=== PATIENT | male | born 1980 | race Caucasian/White ===

== ENCOUNTER → 2016-12-01 | Outpatient (CLI) | payer OTHER ==
--- NOTE | 2016-12-01 18:54 | PN ---
A 36-year-old gentleman who has been followed in the sleep center for treatment of obstructive sleep apnea-hypopnea syndrome. Recently he had a diagnostic sleep study and CPAP titration and discussed results of sleep study with the patient in detail. He received his CPAP unit and he brought his CPAP unit with him to the check-up. I checked his CPAP unit. CPAP pressure is 9 cm of water. Usage is 22 out of 30 nights and 15 out of 30 nights for more than 4 hours. Leak is 14 L/min, which is acceptable. Apnea-hypopnea index is only 0.9, which is perfect. No significant problem with the mask. [place] Sleepiness Scale today is still in the high range at 22. MEDICATIONS: 1. Clonazepam. 2. Sertraline. 3. Metoprolol. 4. Atorvastatin. 5. Seroquel. PHYSICAL EXAMINATION: GENERAL: A pleasant patient without any distress. VITAL SIGNS: BP 102/63, HR 80, RR 16. Weight 237. Temp 98.0, oxygen saturation at room air 98%. HEENT: PERRLA, EOMI. Evaluation of oropharynx showed tongue protrudes midline, extremely low position of soft palate. NECK: Supple. No JVD. Thyroid is not palpable. LUNGS: Clear to percussion and to auscultation. Good air exchange. No wheezing or rhonchi. HEART: S1, S2 regular. Sistolic murmur on aorta, gallops, or rubs. ABDOMEN: Slightly obese, soft and nontender. Bowel sounds are present. No organomegaly appreciated. EXTREMITIES: No clubbing or cyanosis. 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 Cranial nerves 2 to 7 intact. There is no fasciculation or atrophy noted. No focal deficits observed. IMPRESSION: 1. Mild obstructive sleep apnea-hypopnea syndrome on full control with continuous positive airway pressure at 9 cm of water. Patient using machine slightly below the range of today's requirements. 2. Obesity. Body mass index is in the range of 36. 3. History of cardiac arrhythmia, status post pacemaker and defibrillator installation. 4. History of possible cardiomyopathy. 5. Hypertension. 6. Hyperlipidemia. 7. Anxiety. 8. Depression. 9. History of sinus problems. PLAN: 1. Continue treatment with CPAP every night for the whole night. 2. Watching and losing weight. 3. Sleep hygiene with regular time in bed for at least 8 hours. 4. No driving if feeling any sleepiness. Thank you very much for allowing me to participate in the management of your patient. Sincerely, Salvatore Pace MD, PhD, FAASM. Diplomat of [place] [employer], Sleep Medicine Board by [place] [employer] [place] [employer] [facility]
== END | disposition home or self-care (01) ==
LOC: SLEEP 14:45
PROVIDERS: ATTEND Internal Medicine
DX: G47.33 Obstructive sleep apnea (adult) (pediatric) (principal); E66.9 Obesity, unspecified; Z68.36 Body mass index [BMI] 36.0-36.9, adult; I49.9 Cardiac arrhythmia, unspecified; Z95.0 Presence of cardiac pacemaker; Z95.810 Presence of automatic (implantable) cardiac defibrillator; I10 Essential (primary) hypertension; E78.5 Hyperlipidemia, unspecified; F41.9 Anxiety disorder, unspecified; Z79.899 Other long term (current) drug therapy

== ENCOUNTER 2017-08-17 21:30 | Emergency (ER) | payer OTHER ==
[2017-08-17 21:39] VITALS: TEMP 98
[2017-08-17] MEDS ORDERED: SODIUM CHLORIDE 0.9% 1,000 ML IV STA (21:48)
[2017-08-17] MEDS ORDERED: RX INFO: IV CONTRAST WAS GIVEN 1 EACH MISC MISCELLANE PRN (21:48)
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
[2017-08-17 22:24] LABS: ALT 31 U/L (21-72); AST 38 U/L (17-59); Albumin 4.7 g/dL (3.5-5.0); Alcohol <10 mg/dL; Alkaline Phosphatase 82 U/L (38-126); Anion Gap 14 mmol/L; Blood Urea Nitrogen 21 mg/dL (9-20); Calcium 9.8 mg/dL (8.4-10.2); Carbon Dioxide 25 mmol/L (22-30); Chloride 103 mmol/L (98-107); D-Dimer 0.51 mg/L FEU (<0.60); Glucose 91 mg/dL (74-99); Magnesium 2.2 mg/dL (1.6-2.3); Phosphorus 3.9 mg/dL (2.5-4.5); Potassium 4.2 mmol/L (3.5-5.1); Sodium 142 mmol/L (137-145); Total Bilirubin 0.4 mg/dL (0.2-1.3); Total Protein 7.9 g/dL (6.3-8.2)
[2017-08-17 22:26] LABS: Basophils % (A) 0 %; Eosinophils # (A) 0.2 k/uL (0-0.7); Eosinophils % (A) 2 %; HCT 45.5 % (39.0-53.0); HGB 15.2 gm/dL (13.0-17.5); Lymphocytes # (A) 2.1 k/uL (1.0-4.8); Lymphocytes % (A) 23 %; MCH 29.5 pg (25.0-35.0); MCHC 33.5 g/dL (31.0-37.0); Mean Platelet Volume 7.3; Monocytes # (A) 0.5 k/uL (0-1.0); Monocytes % (A) 5 %; Neutrophils # (A) 6.3 k/uL (1.3-7.7); Neutrophils % (A) 69 %; Platelet Count 239 k/uL (150-450); RBC 5.17 m/uL (4.30-5.90); RDW 12.9 % (11.5-15.5); WBC 9.2 k/uL (3.8-10.6)
[2017-08-17 22:28] LABS: Partial Thromboplastin Time 23.9 sec (22.0-30.0); Prothrombin Time 9.9 sec (9.0-12.0)
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
[2017-08-17 22:52] LABS: Troponin I 0.033 ng/mL (0.000-0.034)
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
[2017-08-17 23:02] LABS: Creatine Kinase MB 5.1 ng/mL (0.0-2.4)
[2017-08-17] MEDS ORDERED: NITROGLYCERIN SL TABS 0.4 MG TAB SUBLINGUAL PRN (23:06)
[2017-08-17 23:35] LABS: Appearance,Urine Clear (Clear); Bilirubin,Urine Negative (Negative); Blood,Urine Negative (Negative); Color,Urine Yellow; Glucose,Urine (UA) Negative (Negative); Ketones,Urine Negative (Negative); Leukocyte Esterase,Urine Negative (Negative); Nitrite,Urine Negative (Negative); Protein,Urine Trace (Negative); Specific Gravity,Urine 1.037 (1.001-1.035); Urobilinogen,Urine <2.0 mg/dL (<2.0)
[2017-08-17 23:46] LABS: Amphetamine Screen,Urine Detected (NotDetected); Benzodiazepines Screen,Urine Not Detected (NotDetected); Cocaine Screen,Urine Not Detected (NotDetected); Methadone Screen, Urine Not Detected (NotDetected); Opiate Screen,Urine Not Detected (NotDetected); Phencyclidine Screen,Urine Not Detected (NotDetected); Tricyclic Antidepressant,Urine Not Detected (NotDetected); Urn Cannabinoid Scrn Detected (NotDetected)
[2017-08-17 23:47] LABS: Barbiturate Screen,Urine Not Detected (NotDetected); Oxycodone Screen, Urine Detected (NotDetected)
[2017-08-17 23:51] VITALS: BP 159/75; PULSE 80; RESP 20
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
[2017-08-18] MEDS ORDERED: ASPIRIN 325 MG TAB PO SCH (09:00)
== END 2017-08-18 00:01 | disposition left against medical advice (07) ==
LOC: EC 21:30 → UNDOADMIN 23:06 → 6SEL 23:06 → EC 08-18 00:01
DX: Z04.1 Encounter for examination and observation following transport accident (principal); R55 Syncope and collapse; I42.1 Obstructive hypertrophic cardiomyopathy; R79.89 Other specified abnormal findings of blood chemistry; I25.10 Atherosclerotic heart disease of native coronary artery without angina pectoris; E78.5 Hyperlipidemia, unspecified; I10 Essential (primary) hypertension; F32.9 Major depressive disorder, single episode, unspecified; F41.9 Anxiety disorder, unspecified; F17.200 Nicotine dependence, unspecified, uncomplicated; Z53.29 Procedure and treatment not carried out because of patient's decision for other reasons; Z79.82 Long term (current) use of aspirin; Z79.899 Other long term (current) drug therapy
CPT/HCPCS: 99285; 96360; 36415; 93005; 85379; 83880; 80053; 82550; 82553; 83605; 83735; 84100; 84484; 85025; 85610; 85730; 81003; 80306; 80320; 87086; 72125; 70450; 71275; 74177; Q9967

== ENCOUNTER → 2018-04-17 | Outpatient (CLI) | payer OTHER ==
[2018-04-17 11:22] LABS: Anion Gap 8 mmol/L; Blood Urea Nitrogen 15 mg/dL (9-20); Calcium 9.4 mg/dL (8.4-10.2); Carbon Dioxide 24 mmol/L (22-30); Chloride 107 mmol/L (98-107); Glucose 78 mg/dL (74-99); Potassium 4.3 mmol/L (3.5-5.1); Sodium 139 mmol/L (137-145)
--- NOTE | 2018-04-17 12:24 | CT ---
EXAMINATION TYPE: CT chest w con DATE OF EXAM: 04/17/2018 COMPARISON: 08/17/2017 HISTORY: 37-year-old male Wheezing and dyspnea. Pt has history of open heart surgery from cardiomyopa thy. TECHNIQUE: Contiguous axial scanning of the chest after the administration of 100 mL of Isovue M300. Coronal/sagittal reconstructions performed. CT DLP: 737mGycm. Automatic exposure control utilized for a dose reduction. FINDINGS: Median sternotomy wires are present with post-CABG the mediastinum. Left anterior chest wall ICD gene rator with right atrial and right ventricular leads. Heart upper limits of normal in size without pericardial effusion. Aorta normal caliber with conventional vessel branching anatomy. No thoracic lymphadenopathy by CT size criteria. Mild diffuse bronchial wall thickening is noted without consolidation or pleural effusion. Visualized upper abdomen shows no gross abnormality Bones: No osseous destructive process. IMPRESSION: Mild diffuse bronchial wall thickening could reflect bronchitis or asthma. Otherwise, no acute pulmon chance process seen.
== END | disposition home or self-care (01) ==
LOC: CPPFTMAIN 10:22
PROVIDERS: ATTEND Family Medicine
DX: J44.9 Chronic obstructive pulmonary disease, unspecified (principal); J98.09 Other diseases of bronchus, not elsewhere classified; R06.00 Dyspnea, unspecified
CPT/HCPCS: 94726; 94729; 94060; 80048; 71260; Q9967

== ENCOUNTER 2018-06-18 19:21 | Inpatient (IN) | payer MEDICAID, OTHER ==
--- NOTE | 2018-06-18 19:39 | ED ---
Psych HPI <Cal Hall - Last Filed: 06/19/18 13:02> - General Source: patient, police, RN notes reviewed, old records reviewed Mode of arrival: ambulatory - History of Present Illness MD Complaint: suicidal ideation, feels depressed -: days(s) Associated Psychiatric Symptoms: depression History of same: Yes Quality: constant, getting worse Improves With: medication (off medication) Context: recent alcohol abuse Associated Symptoms: denies other symptoms Treatments Prior to Arrival: none If Self Harm: has plan <Eliot Orr - Last Filed: 06/19/18 16:51> - General Chief Complaint: Psychiatric Symptoms Stated Complaint: Mental health Time Seen by Provider: 06/18/18 19:37 - History of Present Illness Initial Comments: This is a 37 male to the ED co suicidal thoughts and depression, states this is how he normally feels, he is brought in by EMS and PD and petitioned for psychiatric evaluation (Eliot Orr) - Related Data Home Medications Medication Instructions Recorded Confirmed Atorvastatin [Lipitor] 40 mg PO HS 05/19/16 06/18/18 Sertraline [Zoloft] 200 mg PO DAILY 05/19/16 06/18/18 Aspirin EC [Ecotrin Low Dose] 81 mg PO DAILY 06/18/18 06/18/18 Metoprolol Succinate [Toprol XL] 100 mg PO BID 06/18/18 06/18/18 Allergies Allergy/AdvReac Type Severity Reaction Status Date / Time No Known Allergies Allergy Verified 06/18/18 20:09 Review of Systems ROS Other: All systems not noted in ROS Statement are negative. <Cal Hall - Last Filed: 06/19/18 13:02> ROS Other: All systems not noted in ROS Statement are negative. <Eliot Orr - Last Filed: 06/19/18 16:51> ROS Statement: Those systems with pertinent positive or pertinent negative responses have been documented in the HPI. Past Medical History Past Medical History: Coronary Artery Disease (CAD), Hyperlipidemia, Hypertension Additional Past Medical History / Comment(s): Cardiomyopathy, left ventricular hypertrophy, heart murmur History of Any Multi-Drug Resistant Organisms: None Reported Past Surgical History: Adenoidectomy, Coronary Bypass/CABG, Tonsillectomy Additional Past Surgical History / Comment(s): bone spurs in feet removed Past Anesthesia/Blood Transfusion Reactions: No Reported Reaction Past Psychological History: Anxiety, Depression Smoking Status: Current every day smoker Past Alcohol Use History: Occasional Past Drug Use History: Marijuana - Past Family History Father Family Medical History: Congestive Heart Failure (CHF), Diabetes Mellitus Additional Family Medical History / Comment(s): Father is 65 yrs old. He has a pacemaker. Mother Family Medical History: COPD, Diabetes Mellitus Additional Family Medical History / Comment(s): Mother is 61 yrs old. She is an exsmoker. <Eliot Orr - Last Filed: 06/19/18 16:51> General Exam Limitations: no limitations General appearance: alert, in no apparent distress Head exam: Present: atraumatic, normocephalic, normal inspection Eye exam: Present: normal appearance, PERRL, EOMI. Absent: scleral icterus, conjunctival injection, periorbital swelling ENT exam: Present: normal exam, mucous membranes moist Neck exam: Present: normal inspection. Absent: tenderness, meningismus, lymphadenopathy Respiratory exam: Present: normal lung sounds bilaterally. Absent: respiratory distress, wheezes, rales, rhonchi, stridor Cardiovascular Exam: Present: regular rate, normal rhythm, normal heart sounds. Absent: systolic murmur, diastolic murmur, rubs, gallop, clicks GI/Abdominal exam: Present: soft, normal bowel sounds. Absent: distended, tenderness, guarding, rebound, rigid Extremities exam: Present: normal inspection, full ROM, normal capillary refill. Absent: tenderness, pedal edema, joint swelling, calf tenderness Back exam: Present: normal inspection Neurological exam: Present: alert, oriented X3, CN II-XII intact Psychiatric exam: Present: normal affect, normal mood Skin exam: Present: warm, dry, intact, normal color. Absent: rash <Eliot Orr - Last Filed: 06/19/18 16:51> Course <Cal Hall - Last Filed: 06/19/18 13:02> <Eliot Orr - Last Filed: 06/19/18 16:51> Vital Signs 06/18/18 06/19/18 06/19/18 19:28 06:03 12:56 Temperature 98.3 F 97.3 F L Pulse Rate 125 H 79 116 H Respiratory 20 16 18 Rate Blood Pressure 155/104 143/94 126/96 O2 Sat by Pulse 98 100 98 Oximetry - Reevaluation(s) Reevaluation #1: 06/18/18 19:39 patient is medically clear for psychiatric evaluation (Eliot Orr) Medical Decision Making - Lab Data Result diagrams: 06/19/18 03:57 06/19/18 03:57 <Cal Hall - Last Filed: 06/19/18 13:02> - Lab Data Result diagrams: 06/19/18 03:57 06/19/18 03:57 <Eliot Orr - Last Filed: 06/19/18 16:51> - Medical Decision Making The patient was resting comfortably throughout the morning and early afternoon. Patient was reevaluated by psychiatric service I did fill out a physician certification patient will be admitted for inpatient treatment of depression and suicidal ideation. (Cal Hall) - Lab Data Lab Results 06/19/18 06/19/18 Range/Units 03:57 03:57 WBC 11.2 H (3.8-10.6) k/uL RBC 4.87 (4.30-5.90) m/uL Hgb 14.8 (13.0-17.5) gm/dL Hct 43.8 (39.0-53.0) % MCV 90.0 (80.0-100.0) fL MCH 30.4 (25.0-35.0) pg MCHC 33.8 (31.0-37.0) g/dL RDW 12.1 (11.5-15.5) % Plt Count 237 (150-450) k/uL Neutrophils % 58 % Lymphocytes % 32 % Monocytes % 6 % Eosinophils % 2 % Basophils % 0 % Neutrophils # 6.5 (1.3-7.7) k/uL Lymphocytes # 3.6 (1.0-4.8) k/uL Monocytes # 0.7 (0-1.0) k/uL Eosinophils # 0.2 (0-0.7) k/uL Basophils # 0.0 (0-0.2) k/uL Sodium 143 (137-145) mmol/L Potassium 4.1 (3.5-5.1) mmol/L Chloride 109 H (98-107) mmol/L Carbon Dioxide 26 (22-30) mmol/L Anion Gap 8 mmol/L BUN 13 (9-20) mg/dL Creatinine 1.11 (0.66-1.25) mg/dL Est GFR (CKD-EPI)AfAm >90 (>60 ml/min/1.73 sqM) Est GFR (CKD-EPI)NonAf 84 (>60 ml/min/1.73 sqM) Glucose 104 H (74-99) mg/dL Calcium 9.7 (8.4-10.2) mg/dL Total Bilirubin 0.3 (0.2-1.3) mg/dL AST 30 (17-59) U/L ALT 27 (21-72) U/L Alkaline Phosphatase 54 (38-126) U/L Total Protein 6.9 (6.3-8.2) g/dL Albumin 4.1 (3.5-5.0) g/dL Acetaminophen <10.0 ug/mL Serum Alcohol <10 mg/dL Disposition <Cal Hall - Last Filed: 06/19/18 13:02> <Eliot Orr - Last Filed: 06/19/18 16:51> Clinical Impression: Depression, Suicidal ideation Disposition: TRANSFER TO PSYCH HOSP/UNIT Condition: Stable
[2018-06-18] MEDS: LORazepam 2 MG/ML INJ IM STA ×2 (19:52→21:36)
[2018-06-19 04:11] LABS: Basophils % (A) 0 %; Eosinophils # (A) 0.2 k/uL (0-0.7); Eosinophils % (A) 2 %; HCT 43.8 % (39.0-53.0); HGB 14.8 gm/dL (13.0-17.5); Lymphocytes # (A) 3.6 k/uL (1.0-4.8); Lymphocytes % (A) 32 %; MCH 30.4 pg (25.0-35.0); MCHC 33.8 g/dL (31.0-37.0); Mean Platelet Volume 6.9; Monocytes # (A) 0.7 k/uL (0-1.0); Monocytes % (A) 6 %; Neutrophils # (A) 6.5 k/uL (1.3-7.7); Neutrophils % (A) 58 %; Platelet Count 237 k/uL (150-450); RBC 4.87 m/uL (4.30-5.90); RDW 12.1 % (11.5-15.5); WBC 11.2 k/uL (3.8-10.6)
[2018-06-19 04:23] LABS: ALT 27 U/L (21-72); AST 30 U/L (17-59); Acetaminophen <10.0 ug/mL; Albumin 4.1 g/dL (3.5-5.0); Alcohol <10 mg/dL; Alkaline Phosphatase 54 U/L (38-126); Anion Gap 8 mmol/L; Blood Urea Nitrogen 13 mg/dL (9-20); Calcium 9.7 mg/dL (8.4-10.2); Carbon Dioxide 26 mmol/L (22-30); Chloride 109 mmol/L (98-107); Glucose 104 mg/dL (74-99); Potassium 4.1 mmol/L (3.5-5.1); Sodium 143 mmol/L (137-145); Total Bilirubin 0.3 mg/dL (0.2-1.3); Total Protein 6.9 g/dL (6.3-8.2)
[2018-06-19] MEDS ORDERED: LORazepam 2 MG/ML INJ IM STA (06:12)
[2018-06-19] MEDS: ASPIRIN 81 MG PO SCH (12:57)
[2018-06-19] MEDS: SERTRALINE 100 MG TAB PO SCH (12:58)
[2018-06-19] MEDS: METOPROLOL SUCCINATE (ER) 100 MG TAB.ER.24H PO SCH ×2 (12:58→20:33)
[2018-06-19] MEDS ORDERED: NICOTINE 21MG/24HR PATCH TRANSDERM STA (13:01)
[2018-06-19] MEDS ORDERED: MAGNESIUM HYDROXIDE 2,400 MG/10 ML CUP PO PRN (13:57)
[2018-06-19] MEDS ORDERED: ACETAMINOPHEN TAB 325 MG TAB PO PRN (13:57)
[2018-06-19] MEDS ORDERED: ZIPRASIDONE 20 MG VIAL IM PRN (13:57)
[2018-06-19] MEDS ORDERED: MAG HYDROX/AL HYDROX/SIMETH 30 ML CUP PO PRN (13:57)
[2018-06-19] MEDS: LORazepam 1 MG TAB PO PRN ×2 (14:41→23:07)
[2018-06-19 14:50] VITALS: BMI 35.6
--- NOTE | 2018-06-19 15:14 | P.CONS ---
History of Present Illness - Reason for Consult Consult date: 06/19/18 medical managment Requesting physician: Joaquim Kan - Chief Complaint Suicidal ideation - History of Present Illness This is a 37-year-old male patient of Dr. Burnett who presents to the emergency room with complaints of depression and suicidal ideation. Patient states he has been having frequent panic attacks over the past month. Patient does have a significant medical history of congenital heart requiring open heart surgery in July 2016 at [facility]. Additional medical history includes cardiac defibrillator for cardiomyopathy, asthma, coronary artery disease, hypertension , smoker, anxiety and depression. Patient does state he has not been consistently taking all of his meds including his cardiac meds due to comp occasions with his insurance. Patient states he has not followed up with compressor engineer in over a year. At this time patient is quite upset and angry that he has to be in the hospital. Patient is hyperverbal and tearful at times. At this time patient denies chest pain or shortness breath. Patient denies any nausea vomiting or diarrhea. Patient denies any urinary burning or frequency Review of Systems Please refer to HPI otherwise remarkable Past Medical History Past Medical History: Coronary Artery Disease (CAD), Hyperlipidemia, Hypertension Additional Past Medical History / Comment(s): Cardiomyopathy, left ventricular hypertrophy, heart murmur History of Any Multi-Drug Resistant Organisms: None Reported Past Surgical History: Adenoidectomy, Coronary Bypass/CABG, Tonsillectomy Additional Past Surgical History / Comment(s): bone spurs in feet removed Past Anesthesia/Blood Transfusion Reactions: No Reported Reaction Smoking Status: Current every day smoker - Past Family History Father Family Medical History: Congestive Heart Failure (CHF), Diabetes Mellitus Additional Family Medical History / Comment(s): Father is 65 yrs old. He has a pacemaker. Mother Family Medical History: COPD, Diabetes Mellitus Additional Family Medical History / Comment(s): Mother is 61 yrs old. She is an exsmoker. Medications and Allergies Home Medications Medication Instructions Recorded Confirmed Type Atorvastatin [Lipitor] 40 mg PO HS 05/19/16 06/18/18 History Sertraline [Zoloft] 200 mg PO DAILY 05/19/16 06/18/18 History Aspirin EC [Ecotrin Low Dose] 81 mg PO DAILY 06/18/18 06/18/18 History Metoprolol Succinate [Toprol XL] 100 mg PO BID 06/18/18 06/18/18 History Allergies Allergy/AdvReac Type Severity Reaction Status Date / Time No Known Allergies Allergy Verified 06/18/18 20:09 Physical Exam Vitals: Vital Signs Temp Pulse Pulse Resp BP BP Pulse Ox 06/19/18 14:40 97.7 F 114 H 20 133/79 96 06/19/18 12:56 116 H 18 126/96 98 06/19/18 06:03 97.3 F L 79 16 143/94 100 06/18/18 19:28 98.3 F 125 H 20 155/104 98 Intake and Output 06/18/18 06/19/18 06/19/18 22:59 06:59 14:59 Other: Weight 108.862 kg 106.197 kg Head normocephalic Neck supple Lungs clear to auscultation bilaterally no wheezing or crackles Heart regular rate and rhythm S1-S2, no rub or gallop Abdomen is soft nontender nondistended positive bowel sounds no hepatosplenomegaly Extremities no edema Neuro alert and orientated to 3. Patient is agitated. Tearful and hyperverbal Results CBC & Chem 7: 06/19/18 03:57 06/19/18 03:57 Labs: Abnormal Lab Results - Last 24 Hours (Table) 06/19/18 06/19/18 Range/Units 03:57 03:57 WBC 11.2 H (3.8-10.6) k/uL Chloride 109 H (98-107) mmol/L Glucose 104 H (74-99) mg/dL Assessment and Plan Assessment: 1. Depression with suicidal ideation. Patient currently admitted to the mental health unit 2. History of cardiomyopathy. Patient currently has defibrillator 3. history of coronary artery bypass graft surgery. Patient's history of congenital heart defect. [facility] Patient states he has been followed with compressor engineer in 1 year. Patient also states he's been stretching his meds due to insurance issues. 4. Nicotine dependence. Nicotine patch has been ordered 5. History of coronary artery disease 6. Essential hypertension. Home meds resumed 7. Tachycardia. EKG has been ordered. TSH ordered Time with Patient: Greater than 30 (Greater than 60% of the total time spent in counseling and coordination of care. I performed an examination of the patient and discussed their management with the Nurse Practitioner. I have reviewed the Nurse Practitioner's notes and agree with the documented findings and plan of care)
[2018-06-19] MEDS: ATORVASTATIN 40 MG TAB PO SCH (20:34)
[2018-06-20] MEDS: METOPROLOL SUCCINATE (ER) 100 MG TAB.ER.24H PO SCH ×2 (08:15→20:45)
[2018-06-20] MEDS: NICOTINE 21MG/24HR PATCH TRANSDERM SCH (08:15)
[2018-06-20] MEDS: SERTRALINE 100 MG TAB PO SCH (08:15)
[2018-06-20] MEDS: ASPIRIN 81 MG PO SCH (08:15)
[2018-06-20 11:07] LABS: Basophils # (A) 0.1 k/uL (0-0.2); Basophils % (A) 1 %; Eosinophils # (A) 0.1 k/uL (0-0.7); Eosinophils % (A) 1 %; HCT 46.6 % (39.0-53.0); HGB 15.5 gm/dL (13.0-17.5); Lymphocytes # (A) 2.5 k/uL (1.0-4.8); Lymphocytes % (A) 25 %; MCH 30.3 pg (25.0-35.0); MCHC 33.2 g/dL (31.0-37.0); MCV 91.4 fL (80.0-100.0); Mean Platelet Volume 6.4; Monocytes # (A) 0.7 k/uL (0-1.0); Monocytes % (A) 7 %; Neutrophils # (A) 6.4 k/uL (1.3-7.7); Neutrophils % (A) 64 %; Platelet Count 273 k/uL (150-450); RBC 5.09 m/uL (4.30-5.90); RDW 12.2 % (11.5-15.5); WBC 9.9 k/uL (3.8-10.6)
[2018-06-20 11:23] LABS: ALT 29 U/L (21-72); AST 54 U/L (17-59); Albumin 4.5 g/dL (3.5-5.0); Alkaline Phosphatase 56 U/L (38-126); Anion Gap 8 mmol/L; Blood Urea Nitrogen 14 mg/dL (9-20); Calcium 10.1 mg/dL (8.4-10.2); Carbon Dioxide 26 mmol/L (22-30); Chloride 109 mmol/L (98-107); Cholesterol 180 mg/dL (<200); Glucose 79 mg/dL (74-99); HDL Cholesterol 36 mg/dL (40-60); LDL Cholesterol,Calculated 103 mg/dL (0-99); Potassium 4.6 mmol/L (3.5-5.1); Sodium 143 mmol/L (137-145); Total Bilirubin 0.8 mg/dL (0.2-1.3); Total Protein 7.8 g/dL (6.3-8.2); Triglycerides 204 mg/dL (<150)
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
[2018-06-20 17:33] LABS: Hemoglobin A1C 5.2 % (4.0-6.0)
[2018-06-20] MEDS: ATORVASTATIN 40 MG TAB PO SCH (20:45)
[2018-06-21 06:49] VITALS: TEMP 97.8
[2018-06-21] MEDS: SERTRALINE 100 MG TAB PO SCH (08:32)
[2018-06-21] MEDS: NICOTINE 21MG/24HR PATCH TRANSDERM SCH (08:32)
[2018-06-21] MEDS: ASPIRIN 81 MG PO SCH (08:32)
[2018-06-21] MEDS: METOPROLOL SUCCINATE (ER) 100 MG TAB.ER.24H PO SCH (08:32)
[2018-06-21 08:46] VITALS: BP 131/86; PULSE 70; RESP 18
--- NOTE | 2018-06-21 10:51 | P.DS ---
Providers Date of admission: 06/19/18 13:47 Expected date of discharge: 06/21/18 Attending physician: Joaquim Kan Consults: 06/19/18 13:57 Consult Physician Routine Consulting Provider: Richard Newman Consult Reason/Comments: H and P Do you want consulting provider notified?: Yes Primary care physician: Kelsea Burnett - Discharge Diagnosis(es) (1) Major depressive disorder Current Visit: Yes Status: Acute Priority: High (2) Anxiety Current Visit: Yes Status: Acute Priority: Medium (3) Cannabis use disorder, mild, abuse Current Visit: Yes Status: Acute Hospital Course: Brief summary of admission note: This patient is a 29-year-old single male who was admitted to the mental health unit through the emergency room on a petition noting he had suicidal ideation. The patient states that he was involved in a conflict with his girlfriend. He felt overwhelmed and made a statement that he was going to ingest his medications in the garage. This was said in front of his mother who called police for assistance. He was brought to the emergency room for evaluation. For full details please refer to my psychiatric evaluation dated 06/20/2018. Summary of hospital course: The patient was admitted to the mental health unit he did sign in voluntarily. He states that he made the statement of not wanting to live and that he was an overdose to get attention as he was frustrated. He states he had no intent on taking the medications and to the contrary has a fear of dying. He had been successfully treated with Zoloft 200 mg daily but he was concerned he was not able to afford it and started skipping days to make it stretch longer throughout the month. He believes this contributed to his relapsing mood symptoms and anxiety. We spent a significant portion of yesterday's session discussing alternatives to the Zoloft or augmentation strategies. At the end of our discussion he felt he was best served by continuing the Zoloft. He had previously worked with an individual counselor but had not seen one for several months and he feels that he would benefit again from working with an individual counselor. He spontaneously states his parents are not able to provide counseling for him and he requires help from a professional. The patient was cooperative he demonstrated no agitated behavior. He attended groups he complied with his medication. He is clearly able to complete his own activities of daily living. His parents visited last evening and he states that was a supportive visit. Social work will contact his family to discuss discharge planning. He was seen by internal medicine for routine history and physical exam. There were no acute physical health issues to address during the admission. Mental status exam: The patient is dressed in his own clothing hygiene grooming are adequate. He seated calmly in the chair. Eye contact is appropriate. Speech is fluent spontaneous nonpressured. He reports his mood is much improved. He denies having any hopelessness thinking he denies having any suicidal ideation intent or plan. He is reporting no homicidal ideation intent or plan. He describes no auditory or visual hallucinations or any specific delusions. There is no observed evidence of psychosis. He demonstrates no tangential thinking loose associations or flight of ideas he does not appear hypomanic or manic. Affect was euthymic and congruent to reported mood. He demonstrates no verbal or physical aggressiveness he demonstrates no involuntary repetitive movements. He remains oriented to person place and date. Impressions: 1. Major depressive disorder recurrent, anxiety unspecified, cannabis use disorder 2. Implanted cardiac defibrillator, hyperlipidemia 3. Financial constraints Plan: The patient will be discharged from the mental health unit today to return home residing with his parents. Social work will arrange his outpatient mental health follow-up. He will continue on Zoloft 200 mg daily. He is instructed to abstain from any use of alcohol or marijuana or any illicit drug. He does not wish to participate in any inpatient chemical dependency treatment for marijuana use. At this time there is no imminent safety risk. He is appropriate for transition to outpatient care. He is instructed to return to the hospital if any acute safety concerns. At length we discussed smoking cessation and we will provide a prescription for nicotine patches. Patient Condition at Discharge: Stable Plan - Discharge Summary New Discharge Prescriptions: New Nicotine 14Mg/24Hr Patch [Habitrol] 1 patch TRANSDERM DAILY #12 patch Continue Atorvastatin [Lipitor] 40 mg PO HS Metoprolol Succinate [Toprol XL] 100 mg PO BID Aspirin EC [Ecotrin Low Dose] 81 mg PO DAILY Sertraline [Zoloft] 200 mg PO DAILY #60 tab Discharge Medication List Atorvastatin [Lipitor] 40 mg PO HS 05/19/16 [History] Aspirin EC [Ecotrin Low Dose] 81 mg PO DAILY 06/18/18 [History] Metoprolol Succinate [Toprol XL] 100 mg PO BID 06/18/18 [History] Nicotine 14Mg/24Hr Patch [Habitrol] 1 patch TRANSDERM DAILY #12 patch 06/21/18 [ Rx] Sertraline [Zoloft] 200 mg PO DAILY #60 tab 06/21/18 [Rx] Follow up Appointment(s)/Referral(s): Kelsea Burnett MD [Primary Care Provider] - 1-2 days
== END 2018-06-21 14:18 | disposition home or self-care (01) | DRG 885 ==
LOC: EC 19:21 → 3MHU 06-19 13:47
PROVIDERS: ADMIT Psychiatry & Neurology Psychiatry; ATTEND Psychiatry & Neurology Psychiatry
DX: F33.9 Major depressive disorder, recurrent, unspecified (principal); I42.9 Cardiomyopathy, unspecified; R45.851 Suicidal ideations; E78.5 Hyperlipidemia, unspecified; F17.200 Nicotine dependence, unspecified, uncomplicated; F41.0 Panic disorder [episodic paroxysmal anxiety]; I25.10 Atherosclerotic heart disease of native coronary artery without angina pectoris; I11.9 Hypertensive heart disease without heart failure; J45.909 Unspecified asthma, uncomplicated; R01.1 Cardiac murmur, unspecified; R00.0 Tachycardia, unspecified; Z62.810 Personal history of physical and sexual abuse in childhood; Z79.899 Other long term (current) drug therapy; Z79.82 Long term (current) use of aspirin; Z95.1 Presence of aortocoronary bypass graft; Z95.810 Presence of automatic (implantable) cardiac defibrillator; Z71.6 Tobacco abuse counseling; Z82.49 Family history of ischemic heart disease and other diseases of the circulatory system; Z82.5 Family history of asthma and other chronic lower respiratory diseases; Z83.3 Family history of diabetes mellitus
CPT/HCPCS: 36415; 80053; 80061; 80320; 82075; 83036; 83520; 84443; 85025; 93005; 96372; 99285

== ENCOUNTER 2019-01-14 06:47 | Emergency (ER) | payer OTHER ==
[2019-01-14 06:54] VITALS: BP 140/87; PULSE 81; RESP 18; TEMP 97.7
--- NOTE | 2019-01-14 07:12 | XR ---
EXAMINATION TYPE: XR ankle complete RT DATE OF EXAM: 01/14/2019 CLINICAL HISTORY: Right ankle pain after fall downstairs TECHNIQUE: Frontal, lateral and oblique images of the right ankle are obtained. COMPARISON: None. FINDINGS: There is no acute fracture/dislocation evident in the right ankle. The ankle mortise appe ars within normal limits. There is diffuse soft tissue sewing surrounding the right ankle as moderate . IMPRESSION: Moderate circumferential right ankle swelling with no acute fracture or dislocation.
[2019-01-14] MEDS ORDERED: ACET/COD 300 MG/30 MG STARTER PACK 6 TAB BTL PO STA (07:33)
--- NOTE | 2019-01-14 07:33 | ED ---
Lower Extremity Injury HPI - General Chief Complaint: Extremity Injury, Lower Stated Complaint: Leg Injury Time Seen by Provider: 01/14/19 07:12 Source: patient, RN notes reviewed Mode of arrival: ambulatory Limitations: no limitations - History of Present Illness Initial Comments: 38-year-old male presents emergency Department with chief complaint of right ankle injury. Patient states that about 5:30 this morning he was walking down steps missed last step and landed on his right foot and ankle region causing her to twist. Patient complains of only ankle when no foot pain no proximal tib-fib pain. Denies any paresthesias no rating pain at this time did not take any Tylenol Motrin prior arrival. Patient offers no other complaints. - Related Data Home Medications Medication Instructions Recorded Confirmed Atorvastatin [Lipitor] 40 mg PO HS 05/19/16 06/18/18 Aspirin EC [Ecotrin Low Dose] 81 mg PO DAILY 06/18/18 06/18/18 Metoprolol Succinate [Toprol XL] 100 mg PO BID 06/18/18 06/18/18 Previous Rx's Medication Instructions Recorded Nicotine 14Mg/24Hr Patch [Habitrol] 1 patch TRANSDERM DAILY #12 patch 06/21/18 Sertraline [Zoloft] 200 mg PO DAILY #60 tab 06/21/18 Ibuprofen [Motrin] 600 mg PO Q8HR PRN #20 tab 01/14/19 Allergies Allergy/AdvReac Type Severity Reaction Status Date / Time No Known Allergies Allergy Verified 06/18/18 20:09 Review of Systems ROS Statement: Those systems with pertinent positive or pertinent negative responses have been documented in the HPI. ROS Other: All systems not noted in ROS Statement are negative. Past Medical History Past Medical History: Coronary Artery Disease (CAD), Hyperlipidemia, Hypertension Additional Past Medical History / Comment(s): Cardiomyopathy, left ventricular hypertrophy, heart murmur History of Any Multi-Drug Resistant Organisms: None Reported Past Surgical History: Adenoidectomy, Coronary Bypass/CABG, Tonsillectomy Additional Past Surgical History / Comment(s): bone spurs in feet removed Past Anesthesia/Blood Transfusion Reactions: No Reported Reaction Past Psychological History: Anxiety, Depression Smoking Status: Current every day smoker Past Alcohol Use History: Occasional Past Drug Use History: Marijuana - Past Family History Father Family Medical History: Congestive Heart Failure (CHF), Diabetes Mellitus Additional Family Medical History / Comment(s): Father is 65 yrs old. He has a pacemaker. Mother Family Medical History: COPD, Diabetes Mellitus Additional Family Medical History / Comment(s): Mother is 61 yrs old. She is an exsmoker. General Exam Limitations: no limitations General appearance: alert, in no apparent distress Head exam: Present: atraumatic, normocephalic, normal inspection Respiratory exam: Present: normal lung sounds bilaterally. Absent: respiratory distress, wheezes, rales, rhonchi, stridor Cardiovascular Exam: Present: regular rate, normal rhythm, normal heart sounds. Absent: systolic murmur, diastolic murmur, rubs, gallop, clicks Extremities exam: Present: other (Right ankle there is moderate swelling noted, tenderness diffusely medial and laterally no obvious deformity, and there is no foot tenderness including fifth metatarsal tenderness, Refill and pulses within normal limits, no proximal tib-fib tenderness) Neurological exam: Present: alert, oriented X3, CN II-XII intact, reflexes normal. Absent: motor sensory deficit Skin exam: Present: warm, dry, intact, normal color. Absent: rash Course Vital Signs 01/14/19 06:50 Temperature 97.7 F Pulse Rate 81 Respiratory 18 Rate Blood Pressure 140/87 O2 Sat by Pulse 98 Oximetry Medical Decision Making - Medical Decision Making 38-year-old male presents emergency department for right ankle injury. X-rays were reviewed no acute fracture. Patient is right ankle sprain will be placed in [employer] patient advised follow-up with orthopedics if no improvement for one week. Return parameters were discussed Disposition Clinical Impression: Right ankle sprain Disposition: HOME SELF-CARE Condition: Stable Instructions (If sedation given, give patient instructions): Ankle Sprain (ED) Additional Instructions: Please return to the Emergency Department if symptoms worsen or any other concerns. Prescriptions: Ibuprofen [Motrin] 600 mg PO Q8HR PRN #20 tab PRN Reason: Pain Is patient prescribed a controlled substance at d/c from ED?: No Referrals: Kelsea Burnett MD [Primary Care Provider] - 1-2 days Time of Disposition: 07:33
== END 2019-01-14 07:57 | disposition home or self-care (01) ==
LOC: EC 06:47
DX: S93.401A Sprain of unspecified ligament of right ankle, initial encounter (principal); I25.10 Atherosclerotic heart disease of native coronary artery without angina pectoris; E78.5 Hyperlipidemia, unspecified; I11.9 Hypertensive heart disease without heart failure; F17.200 Nicotine dependence, unspecified, uncomplicated; Z79.82 Long term (current) use of aspirin; Z79.899 Other long term (current) drug therapy; Z95.1 Presence of aortocoronary bypass graft; X50.1XXA Overexertion from prolonged static or awkward postures, initial encounter; Y93.01 Activity, walking, marching and hiking
CPT/HCPCS: 73610; 99283; L4350

== ENCOUNTER → 2019-04-17 | Outpatient (CLI) | payer OTHER ==
--- NOTE | 2019-04-17 12:57 | XR ---
EXAMINATION TYPE: XR chest 2V DATE OF EXAM: 04/17/2019 COMPARISON: 05/24/2016 TECHNIQUE: PA and lateral views submitted. HISTORY: Cough and wheeze FINDINGS: The lungs are clear and there is no pneumothorax, pleural effusion, or focal pneumonia. Cardiac dev ice and postsurgical changes seen. Biapical pleural thickening. Hypertrophic and degenerative change of the spine. Mild coarsening of the interstitium. IMPRESSION: 1. Interstitium is slightly coarsened which could be seen with bronchitis. Early mild venous congesti on felt less likely correlate clinically..
== END | disposition home or self-care (01) ==
LOC: RADXRMAIN 11:59
PROVIDERS: ATTEND Family Medicine
DX: R05 Cough (principal)
CPT/HCPCS: 71046

== ENCOUNTER → 2019-05-10 | Outpatient (CLI) | payer OTHER ==
--- NOTE | 2019-05-10 13:52 | CT ---
EXAMINATION TYPE: CT chest wo con DATE OF EXAM: 05/10/2019 COMPARISON: April 17, 2018 HISTORY: Shortness of breath, personal history of tobacco use CT DLP: 579.[address] of the chest was performed with lung and mediastinal window settings submitted. The la ck of contrast limits evaluation of the vascular, mediastinal and parenchymal structures including th e upper abdomen. LUNGS: The lungs are clear and free of infiltrate. No atelectasis. No pulmonary nodule or mass is de tected. No pleural effusion. No CT evidence of interstitial lung disease. MEDIASTINUM/ENRIQUETA: Thoracic aorta is of normal caliber with limited evaluation given lack of contrast . The heart is not enlarged. No evidence for mediastinal mass. No lymph nodes greater than 1cm. UPPER ABDOMEN: No significant abnormality is seen. OTHER: No significant other abnormality. Pacer device is in place. IMPRESSION: 1. No acute abnormality identified.
== END | disposition home or self-care (01) ==
LOC: RADCTMAIN 12:15
PROVIDERS: ATTEND Family Medicine
DX: R05 Cough (principal); R06.02 Shortness of breath; F17.200 Nicotine dependence, unspecified, uncomplicated
CPT/HCPCS: 71250

== ENCOUNTER → 2021-12-21 | Outpatient (CLI) | payer OTHER ==
--- NOTE | 2021-12-21 16:38 | XR ---
EXAMINATION TYPE: XR foot complete LT DATE OF EXAM: 12/21/2021 COMPARISON: NONE INDICATION: Trauma TECHNIQUE: 3 views of the left foot FINDINGS: Spiral mildly displaced fracture of the proximal metaphysis of the fifth proximal phalanx without fra nk extension into the adjacent articular surface. No other definite acute fracture line identified. Severe degenerative changes of the first metatarsophalangeal joint. Slight depression of the head of the second metatarsal bone. Lateral subluxation of the second distal interphalangeal joint. Irregularity and thickening of the sk in of the heel, please correlate clinically. IMPRESSION: Fractured fifth proximal phalanx as described above, please correlate clinically. Other findings as d escribed above.
== END | disposition home or self-care (01) ==
LOC: RADXRMAIN 15:47
PROVIDERS: ATTEND Family Medicine
DX: S62.617A Displaced fracture of proximal phalanx of left little finger, initial encounter for closed fracture (principal)

== ENCOUNTER → 2022-01-03 | Outpatient (CLI) | payer OTHER ==
--- NOTE | 2022-01-03 21:21 | CT ---
EXAMINATION TYPE: CT lumbar spine wo con DATE OF EXAM: 01/03/2022 6:33 PM COMPARISON: CT dated 08/17/2017 HISTORY: lower back pain and leg numbness CT DLP: 2869.90 mGycm Automated exposure control for dose reduction was used. Technique: Unenhanced CT of the lumbar spine was performed. Bone and soft tissue window settings are submitted as well as coronal and sagittal reconstructions. FINDINGS: Slightly exaggerated lumbar lordosis. No significant anterolisthesis or retrolisthesis. No definite v ertebral body collapse or acute displaced fracture. Mild degenerative changes of the lumbar spine wit h right L4-5 and right L5-S1 facet osteoarthropathy. L1-L2: No significant disc disease, central spinal canal stenosis or neuroforaminal stenosis. L2-L3: Small left focal foraminal disc protrusion, causing no significant central spinal canal stenos is or neuroforaminal stenosis. L3-L4: No significant disc disease, central spinal canal stenosis or neuroforaminal stenosis. L4-L5: Slightly prominent epidural fat without significant central spinal canal stenosis, obvious dis c disease or neuroforaminal stenosis. L5-S1: Small thecal sac with prominent epidural fat, with no significant bony central spinal canal st enosis or neuroforaminal stenosis. No significant disc disease seen at that level. Minimal arterial atherosclerotic calcifications. No paraspinal lesion. IMPRESSION: Mild degenerative changes of the lumbar spine as described above.
== END | disposition home or self-care (01) ==
LOC: RADCTMAIN 18:02
PROVIDERS: ATTEND Psychiatry & Neurology Neurology
DX: M47.816 Spondylosis without myelopathy or radiculopathy, lumbar region (principal); M48.061 Spinal stenosis, lumbar region without neurogenic claudication; M99.73 Connective tissue and disc stenosis of intervertebral foramina of lumbar region
CPT/HCPCS: 72131